=== PATIENT | female | born 1970 | race Caucasian/White ===

== ENCOUNTER → 2017-09-07 | Outpatient (CLI) | payer SELFPAY | LOC: COL.CARD 12:00 | DX: R00.2 Palpitations (principal) ==

== ENCOUNTER 2024-03-16 10:40 | Emergency (ER) | payer SELFPAY ==
[~2024-03-16] VITALS: Ht 162.6 cm; Wt 63.6 kg
[2024-03-16 10:45] VITALS: TEMP 98.2
[2024-03-16] MEDS ORDERED: Morphine 4 MG/ML VIAL IV ONE (11:00)
[2024-03-16] MEDS ORDERED: NS 1,000 ML IV ONE (11:00)
[2024-03-16] MEDS ORDERED: Ondansetron 4 MG/2 ML VIAL IV ONE (11:00)
[2024-03-16 11:21] LABS: BASO # 0.1 K/mm3 (0.0-0.2); BASO % 0.7 % (0.0-2.0); EOS # 0.2 K/mm3 (0.0-0.7); EOS % 3.1 % (0.0-4.0); GRAN # 3.8 K/mm3 (1.4-6.5); GRAN % 52.2 % (42.2-75.2); HEMATOCRIT 41.3 % (37.0-47.0); HEMOGLOBIN 13.8 g/dl (12.5-16.0); LYMPH # 2.5 K/mm3 (1.2-3.4); LYMPH % 34.9 % (20.0-51.0); MEAN CELL VOLUME 88 fl (80.0-100.0); MEAN CORPUSCULAR HEMOGLOBIN 29 pg (27-31); MEAN CORPUSCULAR HGB CONC 33 g/dl (33.0-37.0); MONO # 0.6 K/mm3 (0.1-0.6); MONO % 8.5 % (1.7-9.3); PLATELET COUNT 363 K/mm3 (130-400); RED BLOOD COUNT 4.71 M/mm3 (4.10-5.30); REDCELL DISTRIBUTION WIDTH-CV 13.1 % (11.5-14.5)
[2024-03-16 11:24] LABS: PH 5.5 (5.0-8.5); URINE APPEARANCE CLEAR (CLEAR/HAZY); URINE BLOOD NEGATIVE (NEGATIVE); URINE COLOR YELLOW (YELLOW); URINE GLUCOSE NEGATIVE (NEGATIVE); URINE KETONE NEGATIVE (NEGATIVE); URINE NITRATE NEGATIVE (NEGATIVE); URINE PROTEIN(semi-quant) NEGATIVE (NEGATIVE); URINE UROBILINOGEN 0.2 E.U/dL (0.2-1.0)
[2024-03-16 11:45] LABS: ALBUMIN 3.9 g/dL (3.5-5.0); BILIRUBIN,TOTAL 0.4 mg/dL (0.2-1.2); CALCIUM 10.4 mg/dL (8.4-10.2); CREATININE, serum 0.8 mg/dL (0.57-1.11); POTASSIUM 4.1 mEq/L (3.5-4.5); TOTAL PROTEIN 7.1 g/dl (6.2-8.1)
[2024-03-16 12:16] LABS: COLLECTION METHOD CLEAN CATCH
[2024-03-16] MEDS ORDERED: Iohexol 300 - 100 ML VIAL IV ONE (12:28)
[2024-03-16] MEDS ORDERED: NS 100 ML IV SCH (12:28)
[2024-03-16 14:11] VITALS: BP 115/89; PULSE 82
== END 2024-03-16 14:09 | disposition home or self-care (01) ==
LOC: COL.ER 10:40
PROVIDERS: Physician Assistant
DX: M54.50 Low back pain, unspecified (principal); R10.30 Lower abdominal pain, unspecified; F17.200 Nicotine dependence, unspecified, uncomplicated
CPT/HCPCS: J2270; J2405; J7030; Q9967